=== PATIENT | male | born 1970 | race African-American/Black ===

== ENCOUNTER 2017-01-28 19:03 | Inpatient (IN) | payer SELFPAY ==
--- NOTE | 2017-01-28 19:15 | ER Document Report ---
ED Medical Screen (RME) - General Stated Complaint: CHEST PAIN Time Seen by Provider: 01/28/17 19:14 Notes: He states that he has had some intermittent chest tightness today. Has had dyspnea with exertion. Just walking around [employer] he was short of breath. Was sitting at the table and started sweating. Had little shortness of breath and a mild cough yesterday. Patient is a renal failure patient status post dialysis now with kidney transplant. On CellCept and Prograf. - Related Data Allergies/Adverse Reactions: No Known Allergies Allergy (Verified 01/28/17 19:16) Physical Exam - Vital signs Vitals: Temp Pulse Resp BP Pulse Ox 98.1 F 107 H 20 149/111 H 92 01/28/17 19:14 01/28/17 19:14 01/28/17 19:14 01/28/17 19:14 01/28/17 19:14 Course - Re-evaluation Re-evalutation: 01/28/17 19:31 Orders have been placed. Waiting for bed at this time. I have greeted and performed a rapid initial assessment of this patient. A comprehensive ED assessment and evaluation of the patient, analysis of test results and completion of the medical decision making process will be conducted by additional ED providers. - Vital Signs Vital signs: Temp Pulse Resp BP Pulse Ox 98.1 F 107 H 20 149/111 H 92 01/28/17 19:14 01/28/17 19:14 01/28/17 19:14 01/28/17 19:14 01/28/17 19:14
--- NOTE | 2017-01-28 20:14 | RADIOLOGY REPORT (SQ) ---
EXAM DESCRIPTION: CHEST PA/LAT COMPLETED DATE/TIME: 01/28/2017 7:40 pm REASON FOR STUDY: chest pain COMPARISON: None. EXAM PARAMETERS: NUMBER OF VIEWS: two views TECHNIQUE: Digital Frontal and Lateral radiographic views of the chest acquired. RADIATION DOSE: NA LIMITATIONS: none FINDINGS: LUNGS AND PLEURA: No opacities, masses or pneumothorax. No pleural effusion. MEDIASTINUM AND HILAR STRUCTURES: No masses or contour abnormalities. HEART AND VASCULAR STRUCTURES: Heart normal size. No evidence for failure. BONES: No acute findings. HARDWARE: None in the chest. OTHER: No other significant finding. IMPRESSION: NO SIGNIFICANT RADIOGRAPHIC FINDING IN THE CHEST. TECHNICAL DOCUMENTATION: JOB ID: [id number] [employer]- All Rights Reserved
[2017-01-28 20:15] LABS: ABSOLUTE EOSINOPHILS # (AUTO) 0.1 10^3/uL (0.0-0.6); ABSOLUTE LYMPHOCYTES (AUTO) 1.8 10^3/uL (0.5-4.7); ABSOLUTE MONOCYTES (AUTO) 0.6 10^3/uL (0.1-1.4); ABSOLUTE NEUT (AUTO) 5.2 10^3/uL (1.7-8.2); BASOPHILS % (AUTO) 0.4 % (0-2); EOSINOPHILS % (AUTO) 1.3 % (0-6); HEMATOCRIT 41.9 % (37.9-51.0); HEMOGLOBIN 14.2 g/dL (13.5-17.0); HGB HCT DIFFERENCE 0.7; MEAN CORPUSCULAR HEMOGLOBIN 30.2 pg (27.0-33.4); MEAN CORPUSCULAR VOLUME 89 fl (80-97); MONOCYTES % (AUTO) 8.3 % (3-13); RED BLOOD COUNT 4.72 10^6/uL (4.35-5.55); RED CELL DISTRIBUTION WIDTH 14.7 % (11.5-14.0); WHITE BLOOD COUNT 7.8 10^3/uL (4.0-10.5)
--- NOTE | 2017-01-28 20:24 | ER Document Report ---
ED General - General Chief Complaint: Chest Pain Stated Complaint: CHEST PAIN Time Seen by Provider: 01/28/17 19:14 TRAVEL OUTSIDE OF THE [place] IN LAST 30 DAYS: No - HPI Notes: Patient is a 46-year-old male with a history of hypertension, kidney disease status post kidney transplant, anxiety who presents the ED complaining of chest tightness with dyspnea on exertion while ambulating around [facility] today. Pt also had an episode of sweating while sitting at a table to catch his breath. Patient states that chest tightness is not new for him and is usually associated with anxiety per pt, but the dyspnea on exertion is what brought him in today. Patient states that he is still eating and drinking without any difficulties. He still urinating normally and having normal bowel movements. Patient states that he feels a chest discomfort that does not radiate, but currently is asymptomatic. Patient states that his symptoms exacerbate when he ambulates, and is not present at rest. Patient also has an associated left calf tightness, but denies any distant travel, smoking, hormone use, surgery, trauma, or previous history of DVT/PE. Patient denies any significant cardiac medical history or history of diabetes. He denies any IV drug use. Patient states that he is seen in [place] s/p renal transplant. Denies any headache, fever, neck pain, URI, sore throat, palpitations, syncope, cough, wheeze, abdominal pain, nausea/vomiting/diarrhea, urinary retention, dysuria, hematuria , back pain, loss of control of bowel or bladder, numbness/tingling, saddle anesthesia, muscle paralysis/weakness, or rash. Pt takes CellCept and Prograf s/p kidney transplant. - Related Data Allergies/Adverse Reactions: No Known Allergies Allergy (Verified 01/28/17 19:16) Past Medical History - Social History Smoking Status: Never Smoker Frequency of alcohol use: Occasional Drug Abuse: None Family History: Reviewed & Not Pertinent Patient has suicidal ideation: No Patient has homicidal ideation: No Renal/ Medical History: Denies: Hx Peritoneal Dialysis Review of Systems - Review of Systems Notes: REVIEW OF SYSTEMS: CONSTITUTIONAL : Denies fever, chills, or sweats. Denies recent illness. EENT: Denies eye, ear, throat, or mouth pain or symptoms. Denies nasal or sinus congestion or discharge. Denies throat, tongue, or mouth swelling or difficulty swallowing. CARDIOVASCULAR: see hpi. Denies ankle edema. RESPIRATORY: Denies cough, cold, or chest congestion. see hpi. GASTROINTESTINAL: Denies abdominal pain or distention. Denies nausea, vomiting , or diarrhea. Denies blood in vomitus, stools, or per rectum. Denies black, tarry stools. Denies constipation. GENITOURINARY: Denies difficulty urinating, painful urination, burning, frequency, blood in urine, or discharge. MUSCULOSKELETAL: see hpi. SKIN: Denies rash, lesions or sores. NEUROLOGICAL: Denies confusion or altered mental status. Denies passing out or loss of consciousness. Denies dizziness or lightheadedness. Denies headache. Denies weakness or paralysis or loss of use of either side. Denies problems with gait or speech. Denies sensory loss, numbness, or tingling. Denies seizures. PSYCHIATRIC: see hpi. ALL OTHER SYSTEMS REVIEWED AND NEGATIVE. Dictation was performed using [employer] voice recognition software Physical Exam - Vital signs Vitals: Temp Pulse Resp BP Pulse Ox 98.1 F 107 H 20 149/111 H 92 01/28/17 19:14 01/28/17 19:14 01/28/17 19:14 01/28/17 19:14 01/28/17 19:14 Notes: PHYSICAL EXAMINATION: GENERAL: Well-appearing, well-nourished and in no acute distress. A&Ox4. Appears comfortable. HEAD: Atraumatic, normocephalic. EYES: Pupils equal round and reactive to light, extraocular movements intact, sclera anicteric, conjunctiva are normal. ENT: Nares patent and without discharge. oropharynx clear without exudates. No tonsilar hypertrophy or erythema. Moist mucous membranes. NECK: Normal range of motion, supple without lymphadenopathy. No rigidity/ meningismus. Chest: non-tender. equal rise/fall. LUNGS: Breath sounds clear to auscultation bilaterally and equal. No wheezes rales or rhonchi. HEART: Regular rate and rhythm without murmurs, rubs, gallops. ABDOMEN: Soft, nontender, nondistended abdomen. No guarding, no rebound. No masses appreciated. Normal bowel sounds present. No CVA tenderness bilaterally. Musculoskeletal: LE's b/l: FROM to passive/active. Strength 5+/5. + mild calf tenderness ("sore") with palp to the left. No erythema, swelling, or palpable cord. Extremities: No cyanosis, clubbing, or edema b/l. Peripheral pulses 2+. Capillary refill less than 3 seconds. NEUROLOGICAL: Normal speech, normal gait. Normal sensory, motor exams PSYCH: Normal mood, normal affect. SKIN: Warm, Dry, normal turgor, no rashes or lesions noted. Course - Re-evaluation Re-evalutation: 01/28/17 21:24 + trop 0.204 ASA given Lovenox ordered CTA chest ordered O2 at 2L due to O2 sat of 92% on RA 01/28/17 23:29 2nd trop pending 2nd EKG obtained, improvement in T waves in anterior leads CTA chest showed + PE. see results Pt currently asymptomatic at rest Reviewed with Dr. Castano: admit No answer when calling hospitalist, I will try again in a few minutes. 01/28/17 23:[address] Garrett. He would like the result of the 2nd trop prior to acceptance. If it is significantly higher than he would recommend transfer. 01/29/17 00:02 2nd Trop decreased to 0.177. Spoke with Dr. Garrett who accepted pt to [facility]. - Vital Signs Vital signs: Temp Pulse Resp BP Pulse Ox 98.1 F 107 H 10 L 162/112 H 96 01/28/17 19:14 01/28/17 19:14 01/28/17 21:01 01/28/17 21:01 01/28/17 21:01 - Laboratory Result Diagrams: 01/28/17 20:02 01/28/17 20:02 Laboratory results interpreted by me: 01/28/17 01/28/17 01/28/17 20:02 20:02 20:02 RDW 14.7 H APTT D-Dimer Sodium 145.1 H Creatinine 1.51 H Est GFR (Non-Af Amer) 50 L Glucose 112 H Creatine Kinase 328 H NT-Pro-B Natriuret Pep 559 H Urine Protein 01/28/17 01/28/17 01/28/17 20:02 21:45 22:40 RDW APTT 38.3 H D-Dimer > 20.00 H* Sodium Creatinine Est GFR (Non-Af Amer) Glucose Creatine Kinase NT-Pro-B Natriuret Pep Urine Protein >=500 H Discharge - Discharge Clinical Impression: Pulmonary emboli Qualifiers: Pulmonary embolism type: other Chronicity: acute Acute cor pulmonale presence: with acute cor pulmonale Qualified Code(s): I26.09 - Other pulmonary embolism with acute cor pulmonale Condition: Stable Disposition: ADMITTED INPATIENT Admitting Provider: Hospitalist - Dr. Garrett Unit Admitted: [facility]
[2017-01-28 20:32] LABS: ALANINE AMINOTRANSFERASE 32 U/L (21-72); ALBUMIN 4.2 g/dL (3.5-5.0); ALKALINE PHOSPHATASE 54 U/L (38-126); ANION GAP 16 (5-19); ASPARTATE AMINO TRANSFERASE 24 U/L (17-59); BILIRUBIN,DIRECT 0.3 mg/dL (0.0-0.4); BILIRUBIN,TOTAL 0.9 mg/dL (0.2-1.3); BLOOD UREA NITROGEN 16 mg/dL (7-20); CALCIUM 9.6 mg/dL (8.4-10.2); CARBON DIOXIDE 23 mmol/L (22-30); CHLORIDE 106 mmol/L (98-107); CREATINE KINASE 328 U/L (55-170); CREATININE RESULT 1.51 mg/dL (0.52-1.25); GLUCOSE 112 mg/dL (75-110); POTASSIUM 3.8 mmol/L (3.6-5.0); SODIUM 145.1 mmol/L (137-145); TOTAL PROTEIN 7.9 g/dL (6.3-8.2)
[2017-01-28 20:51] LABS: CREATINE KINASE MB 1.32 ng/mL (<4.55); TROPONIN I 0.204 ng/mL
[2017-01-28] MEDS ORDERED: ASPIRIN 81 MG TABLET, CHEWABLE PO ONE (21:12)
[2017-01-28 21:42] LABS: PROTHROMBIN TIME 14.2 SEC (11.4-15.4)
[2017-01-28 21:43] LABS: PARTIAL THROMBOPLASTIN TIME 38.3 SEC (23.5-35.8)
[2017-01-28] MEDS ORDERED: ENOXAPARIN SODIUM INJ 150 MG/1 ML DISP.SYRIN SUBCUT SCH (22:00)
[2017-01-28 22:13] LABS: APPEARANCE,URINE CLEAR; BILIRUBIN,URINE NEGATIVE (NEGATIVE); GLUCOSE, URINE NEGATIVE (NEGATIVE); KETONES,URINE NEGATIVE (NEGATIVE); LEUKOCYTE ESTERASE,URINE NEGATIVE (NEGATIVE); NITRITE,URINE NEGATIVE (NEGATIVE); PROTEIN,URINE >=500 mg/dL (NEGATIVE); URINE SPECIFIC GRAVITY 1.025; UROBILINOGEN,URINE NEGATIVE mg/dL (<2.0)
--- NOTE | 2017-01-28 23:18 | RADIOLOGY REPORT (SQ) ---
EXAM DESCRIPTION: CTA CHEST COMPLETED DATE/TIME: 01/28/2017 10:53 pm REASON FOR STUDY: dyspnea on exertion COMPARISON: None. TECHNIQUE: CT scan of the chest performed using helical scanning technique with dynamic intravenous contrast injection. Images reviewed with lung, soft tissue and bone windows. Reconstructed coronal and sagittal MPR images reviewed. Additional 3 dimensional post-processing performed to develop Maximal Intensity Projection images (CA P). All images stored on PACS. All CT scanners at this facility use dose modulation, iterative reconstruction, and/or weight based d osing when appropriate to reduce radiation dose to as low as reasonably achievable (ALARA). [facility]: Dose Right [facility]: CareDose [facility]: Dose Right [facility]: Teradose 4D [facility]: Questra CONTRAST TYPE AND DOSE: contrast/concentration: Isovue 370.00 mg/ml; Total Contrast Delivered: 100.0 ml; Total Saline Delivered: 60.0 ml Contrast bolus optimized for the pulmonary arteries. Not diagnostic for the aorta. RENAL FUNCTION: None required. The patient is less than 50 years old. RADIATION DOSE: CT Rad equipment meets quality standard of care and radiation dose reduction techniq ues were employed. CTDIvol: 34.5 mGy. DLP: 1191 mGy-cm. . LIMITATIONS: None. FINDINGS: LUNGS AND PLEURA: Small patchiness of the lingula. AORTA AND GREAT VESSELS: No aneurysm. Contrast bolus not optimized for the aorta. HEART: No pericardial effusion. No significant coronary artery calcifications. PULMONARY ARTERIES: Near occlusive pulmonary emboli predominately of the interlobar artery of the rig ht lower lobe and secondary branches of the left upper lobe. 4.8 cm in diameter main pulmonary outfl ow track tract. HILAR AND MEDIASTINAL STRUCTURES: No identified masses or abnormal nodes. HARDWARE: None in the chest. UPPER ABDOMEN: No significant findings. Limited exam. THYROID AND OTHER SOFT TISSUES: No masses. No adenopathy. BONES: No acute or significant finding. 3D MIPS: Confirm above findings. OTHER: No other significant finding. IMPRESSION: 1. Bilateral pulmonary emboli includes a near occlusive emboli of the interlobar artery of the right lower lobe. 2. Pulmonary arterial hypertension. 3. With small to moderate lingular pneumonia/atelectasis/fluid. COMMENT: This report was called to Dr. Christina At23:09 on 01/28/2017. Quality ID # [id number]: Final reports with documentation of one or more dose reduction techniques (e.g., Au tomated exposure control, adjustment of the mA and/or kV according to patient size, use of iterative reconstruction technique) TECHNICAL DOCUMENTATION: JOB ID: [id number] [employer]- All Rights Reserved
[2017-01-29] MEDS ORDERED: MAGNESIUM HYDROXIDE SUSP 30 ML UDCUP PO PRN (00:33)
[2017-01-29] MEDS ORDERED: NORMAL SALINE 1000 ML 1,000 ML IV SCH (00:45)
--- NOTE | 2017-01-29 02:49 | PDOC H&P ---
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 He presents after 4 hours of chest tightness occurring while shopping. This is associated with diaphoresis and shortness of breath. No nausea or vomiting he denies previous episode he denies recent change in medications though over the last few days he has noted a painful knot behind his left knee. In the emergency room is found to be hypertensive and tachycardic, CTA of the chest reveals large bilateral pulmonary emboli he started on Lovenox and referred to the hospitalist for admission. Past Medical History Cardiac Medical History: Reports: Hypertension Pulmonary Medical History: Reports: Sleep Apnea Past Surgical History Past Surgical History: Reports: Renal Transplant Social History Information Source: Patient Lives with: Family Smoking Status: Never Smoker Frequency of Alcohol Use: Rare Drugs: None - Advance Directive Resuscitation Status: Full Code Family History Family History: Other - End-stage renal failure secondary to toxic metabolite Parental Family History Reviewed: Yes Children Family History Reviewed: Yes Sibling(s) Family History Reviewed.: Yes Medication/Allergy Allergies/Adverse Reactions: No Known Allergies Allergy (Verified 01/28/17 19:16) Review of Systems Constitutional: ABSENT: chills, fever(s), headache(s), weight gain, weight loss Eyes: ABSENT: visual disturbances Ears: ABSENT: hearing changes Cardiovascular: ABSENT: chest pain, dyspnea on exertion, edema, orthropnea, palpitations Respiratory: ABSENT: cough, hemoptysis Gastrointestinal: ABSENT: abdominal pain, constipation, diarrhea, hematemesis, hematochezia, nausea, vomiting Genitourinary: ABSENT: dysuria, hematuria Musculoskeletal: ABSENT: joint swelling Integumentary: ABSENT: rash, wounds Neurological: ABSENT: abnormal gait, abnormal speech, confusion, dizziness, focal weakness, syncope Psychiatric: ABSENT: anxiety, depression, homidical ideation, suicidal ideation Endocrine: ABSENT: cold intolerance, heat intolerance, polydipsia, polyuria Hematologic/Lymphatic: ABSENT: easy bleeding, easy bruising Physical Exam Vital Signs: Temp Pulse Resp BP Pulse Ox 98.1 F 107 H 13 156/120 H 98 01/28/17 19:14 01/28/17 19:14 01/29/17 02:01 01/29/17 02:01 01/29/17 02:01 General appearance: PRESENT: cooperative, mild distress. ABSENT: disheveled Head exam: PRESENT: atraumatic, normocephalic Eye exam: PRESENT: conjunctiva pink, EOMI, PERRLA. ABSENT: scleral icterus Ear exam: PRESENT: normal external ear exam Mouth exam: PRESENT: moist, tongue midline Neck exam: ABSENT: carotid bruit, JVD, lymphadenopathy, thyromegaly Respiratory exam: PRESENT: clear to auscultation walter, tachypnea. ABSENT: rales , rhonchi, wheezes Cardiovascular exam: PRESENT: gallop, +S1, +S2, systolic murmur Pulses: PRESENT: normal dorsalis pedis pul Vascular exam: PRESENT: normal capillary refill GI/Abdominal exam: PRESENT: normal bowel sounds, soft. ABSENT: distended, guarding, mass, organolmegaly, rebound, tenderness Rectal exam: PRESENT: deferred Extremities exam: PRESENT: calf tenderness - Left side, full ROM. ABSENT: clubbing, pedal edema Neurological exam: PRESENT: alert, awake, oriented to person, oriented to place , oriented to time, oriented to situation, CN II-XII grossly intact. ABSENT: motor sensory deficit Psychiatric exam: PRESENT: appropriate affect, normal mood. ABSENT: homicidal ideation, suicidal ideation Skin exam: PRESENT: dry, intact, warm. ABSENT: cyanosis, rash Results Impressions: Chest X-Ray 01/28/17 19:29 IMPRESSION: NO SIGNIFICANT RADIOGRAPHIC FINDING IN THE CHEST. Chest/Abdomen CTA 01/28/17 21:23 IMPRESSION: 1. Bilateral pulmonary emboli includes a near occlusive emboli of the interlobar artery of the right lower lobe. 2. Pulmonary arterial hypertension. 3. With small to moderate lingular pneumonia/atelectasis/fluid. Assessment & Plan - Diagnosis (1) Pulmonary emboli Qualifiers: Pulmonary embolism type: other Chronicity: acute Acute cor pulmonale presence: with acute cor pulmonale Qualified Code(s): I26.09 - Other pulmonary embolism with acute cor pulmonale Is this a current diagnosis for this admission?: Yes Plan: Secondary to left leg DVT by history hemodynamically stable 12 hours of bedrest , Lovenox 1 mg/kg subcu every 12 hours ordered. (2) Left leg DVT Is this a current diagnosis for this admission?: Yes Plan: Venous Doppler pending, Lovenox 1 mg/kg subcu every 12 hours (3) Renal transplant recipient Is this a current diagnosis for this admission?: Yes Plan: Avoid nephrotoxic meds and doses unclear baseline creatinine currently 1.5 follow-up chemistry (4) Immunosuppression Is this a current diagnosis for this admission?: Yes Plan: Continue CellCept (5) Obstructive sleep apnea Is this a current diagnosis for this admission?: Yes Plan: Continue CPAP - Time Time Spent: 30 to 50 Minutes - Inpatient Certification Medical Necessity: Need Close Monitoring Due to Risk of Patient Decompensation
[2017-01-29] MEDS ORDERED: INFLUENZA ADLT QUAD (36MOS+) 2017-18 VAC 0.5 ML SYR IM PRN (04:23)
[2017-01-29 05:55] LABS: ABSOLUTE EOSINOPHILS # (AUTO) 0.1 10^3/uL (0.0-0.6); ABSOLUTE LYMPHOCYTES (AUTO) 2.1 10^3/uL (0.5-4.7); ABSOLUTE MONOCYTES (AUTO) 0.8 10^3/uL (0.1-1.4); ABSOLUTE NEUT (AUTO) 4.5 10^3/uL (1.7-8.2); BASOPHILS % (AUTO) 0.7 % (0-2); EOSINOPHILS % (AUTO) 1.6 % (0-6); HEMATOCRIT 39.8 % (37.9-51.0); HEMOGLOBIN 13.6 g/dL (13.5-17.0); LYMPHOCYTES % (AUTO) 27.5 % (13-45); MEAN CORPUSCULAR HEMOGLOBIN 30.3 pg (27.0-33.4); MEAN CORPUSCULAR HGB CONC 34.2 g/dL (32.0-36.0); MEAN CORPUSCULAR VOLUME 89 fl (80-97); MONOCYTES % (AUTO) 10.5 % (3-13); RED BLOOD COUNT 4.49 10^6/uL (4.35-5.55); RED CELL DISTRIBUTION WIDTH 14.2 % (11.5-14.0); SEGMENTED NEUTROPHILS % (AUTO) 59.7 % (42-78); WHITE BLOOD COUNT 7.5 10^3/uL (4.0-10.5)
[2017-01-29 06:13] LABS: ANION GAP 14 (5-19); BLOOD UREA NITROGEN 17 mg/dL (7-20); CALCIUM 9.5 mg/dL (8.4-10.2); CARBON DIOXIDE 27 mmol/L (22-30); CHLORIDE 104 mmol/L (98-107); CREATININE RESULT 1.51 mg/dL (0.52-1.25); GLUCOSE 108 mg/dL (75-110); POTASSIUM 3.9 mmol/L (3.6-5.0); SODIUM 145.1 mmol/L (137-145)
[2017-01-29] MEDS: IPRATROPIUM/ALBUTEROL 0.5-2.5 MG/3 ML AMPUL NEB SCH ×2 (08:44→20:26)
[2017-01-29] MEDS: APIXABAN 5 MG TABLET PO SCH ×2 (09:29→17:10)
[2017-01-29] MEDS: DOCUSATE SODIUM 100 MG CAPSULE PO SCH ×2 (09:30→17:11)
[2017-01-29] MEDS ORDERED: ENOXAPARIN SODIUM INJ 150 MG/1 ML DISP.SYRIN SUBCUT SCH (10:00)
--- NOTE | 2017-01-29 10:25 | RADIOLOGY REPORT (SQ) ---
EXAM DESCRIPTION: VENOUS UNILATERAL LOWER COMPLETED DATE/TIME: 01/29/2017 10:17 am REASON FOR STUDY: Left DVT COMPARISON: None. TECHNIQUE: Dynamic and static carter scale and color images acquired of the left leg venous system. Se lected spectral images acquired with additional compression and augmentation maneuvers. The contralat eral common femoral vein and saphenofemoral junction were also imaged. Images stored on PACS. LIMITATIONS: None. FINDINGS: COMMON FEMORAL: Normal phasicity, compression and augmentation. No visualized echogenic ma terial on carter scale. No defects on color images. FEMORAL: Occlusive intraluminal thrombus is identified throughout the femoral vein POPLITEAL: Normal compression, augmentation. No visualized echogenic material on carter scale. No defec ts on color images. CALF VESSELS: Normal compression, augmentation. No visualized echogenic material on carter scale. No de fects on color images. GSV and SSV: Normal compression, augmentation. No visualized echogenic material on carter scale. No def ects on color images. ANY DEEP VENOUS INSUFFICIENCY: Not evaluated. ANY EVIDENCE OF POPLITEAL CYST: No. OTHER: No other significant finding. CONTRALATERAL COMMON FEMORAL VEIN AND SAPHENOFEMORAL JUNCTION: Normal phasicity, compression and augmentation. No visualized echogenic material on carter scale. No de fects on color images. IMPRESSION: Occlusive intraluminal thrombus is identified throughout the femoral vein. TECHNICAL DOCUMENTATION: JOB ID: [id number] [employer]- All Rights Reserved
--- NOTE | 2017-01-29 12:02 | PROGRESS NOTE E ---
Progress Note NAME: RENEA HERRON : 1970 AGE: 46Y DATE: 01/29/2017 ROOM: 332 SUBJECTIVE: The patient is a 46-year-old male who had a kidney transplant. 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 He presented after 4 hours of chest pain/tightness and diaphoresis. The patient had no nausea or vomiting. He had a CTA which showed he had bilateral PE as well as DVT and was started on Lovenox. OBJECTIVE: GENERAL: Patient lying in bed, comfortable, not in distress. VITAL SIGNS: Temperature 97.6, heart rate 81, respiratory rate 18, blood pressure is 149/98, saturation 97%. HEENT: Head normocephalic, atraumatic. Pupils round, reactive to light and accommodation bilaterally. Extraocular movements intact. Ears: Tympanic membranes intact bilaterally. No discharge from the ears. No discharge from the nose. NECK: Supple. No increased JVD. No thyromegaly. No lymphadenopathy. CARDIOVASCULAR: Normal S1, S2. Regular rate and rhythm. No murmur, no gallops. RESPIRATORY: Lungs clear. ABDOMEN: Soft. LABORATORY: White blood count is 7.5, hemoglobin 13.6, hematocrit 39. Sodium 145, potassium 3.9, creatinine 1.5. ASSESSMENT: 1. BILATERAL PE, ACUTE. 2. ACUTE DVT. 3. STATUS POST -DONOR KIDNEY TRANSPLANT IN 2007. 4. CHRONIC IMMUNOSUPPRESSION. 5. HYPERTENSION. PLAN: The patient was started on Lovenox 1 mg/kg twice a day. Will add Eliquis 10 mg twice a day for 1 week and then 5 mg twice a day. Will discontinue Lovenox tomorrow. Will get echocardiogram, profile, urine protein-creatinine ratio. Continue his immunosuppression. He is on CellCept 500 mg twice a day and tacrolimus XL or Prograf XL 5 mg daily. MEDICAL NECESSITY: Needs lovenox for treatment of DVT. DICTATING PHYSICIAN: RAYNE LUJAN M.D. [id number] PHY#: [id number] ID: [id number] JOB#: [id number] ACCT: [id number] cc: > MTDD
--- NOTE | 2017-01-29 14:41 | EKG REPORT ---
SEVERITY:- BORDERLINE ECG - SINUS RHYTHM PROBABLE LEFT ATRIAL ABNORMALITY : Confirmed by: Leslie Schrader MD 29-Jan-2017 14:40:03
--- NOTE | 2017-01-29 14:41 | EKG REPORT ---
SEVERITY:- BORDERLINE ECG - SINUS TACHYCARDIA BORDERLINE T ABNORMALITIES, DIFFUSE LEADS : Confirmed by: Leslie Schrader MD 29-Jan-2017 14:40:07
--- NOTE | 2017-01-29 16:23 | XCELERA REPORT ---
[address] [address] Transthoracic Echocardiogram Report Name: RENEA HERRON Age: 46 yrs Gender: Male : 1970 Patient Status: Inpatient Patient Location: [address] [place] [address] Study Date: 01/29/2017 01:32 PM Height: 77 in Weight: 288 lb BSA: 2.6 m2 Procedure: A complete two-dimensional transthoracic echocardiogram was performed (2D, M-mode, spectral and color flow Doppler). The study was technically difficult with many images being suboptimal in quality. Reason For Study: SOB. DVT Ordering Physician: RAYNE LUJAN Performed By: Radha Laird Interpretation Summary The study was technically difficult with many images being suboptimal in quality. The left ventricular ejection fraction is normal. There is mild to moderate concentric left ventricular hypertrophy. The left ventricle is grossly normal size. Doppler measurements suggest pseudonormalized left ventricular relaxation, which is associated with grade II/IV or mild to moderate diastolic dysfunction Wall motion cannot be accurately commented on, but no definite regional wall motion abnormalities noted. The left atrium is mildly dilated. The right atrium is mildly dilated. There is a trace amount of mitral regurgitation There is no mitral valve stenosis. There is a mild amount of aortic regurgitation There is no aortic valve stenosis There is a trace or physiologic amount of tricuspid regurgitation Tricuspid regurgitation jet envelope not well defined to measure RV systolic pressure accurately. The aortic root is not well visualized but is probably normal size. The inferior vena cava was not well visualized There is no pericardial effusion. MMode/2D Measurements & Calculations RVDd: 3.7 cm LVIDd: 4.0 cmFS: 42.0 % Ao root diam: 3.9 cm IVSd: 1.3 cm LVIDs: 2.3 cmEDV(Teich): 70.8 ml LVPWd: 1.1 cmESV(Teich): 18.7 ml Ao root area: 11.7 cm2 EF(Teich): 73.6 % LA dimension: 4.0 cm LVOT diam: 2.3 cm LVOT area: 4.1 cm2 Doppler Measurements & Calculations MV E max evan: MV P1/2t max evan: Ao V2 max: LV V1 max P.2 cm/sec 61.2 cm/sec 137.8 cm/sec 6.9 mmHg MV A max evan: MV P1/2t: 69.5 msec Ao max PG: LV V1 max: 95.8 cm/sec MVA(P1/2t): 3.2 cm2 7.6 mmHg 131.6 cm/sec MV E/A: 0.63 MV dec slope: JOESPH(V,D): 3.9 cm2 258.0 cm/sec2 PA V2 max: TR max evan: 102.7 cm/sec 210.4 cm/sec PA max PG: TR max P.7 mmHg 4.2 mmHg Left Ventricle The left ventricle is grossly normal size. There is mild to moderate concentric left ventricular hypertrophy. The left ventricular ejection fraction is normal. Doppler measurements suggest pseudonormalized left ventricular relaxation, which is associated with grade II/IV or mild to moderate diastolic dysfunction. Wall motion cannot be accurately commented on, but no definite regional wall motion abnormalities noted. Right Ventricle Borderline right ventricular enlargement. Right ventricular function cannot be assessed due to poor image quality. Atria The right atrium is mildly dilated. The left atrium is mildly dilated. Interarterial septum not well visualized and not well dopplered. Cannot comment on ASD/PFO presence. Mitral Valve There is mild mitral leaflet calcification. There is no mitral valve stenosis. There is a trace amount of mitral regurgitation. Aortic Valve The aortic valve is sclerotic, but shows no functional abnormality. There is no aortic valve stenosis. There is a mild amount of aortic regurgitation. Tricuspid Valve The tricuspid valve is not well visualized secondary to technical limitations. There is no tricuspid stenosis. There is a trace or physiologic amount of tricuspid regurgitation. Tricuspid regurgitation jet envelope not well defined to measure RV systolic pressure accurately. Pulmonic Valve The pulmonic valve is not well visualized. Great Vessels The aortic root is not well visualized but is probably normal size. The inferior vena cava was not well visualized. Effusions There is no pericardial effusion. : RAYNE LUJAN > Ramiro Harvey
[2017-01-30 05:22] LABS: ABSOLUTE EOSINOPHILS # (AUTO) 0.2 10^3/uL (0.0-0.6); ABSOLUTE LYMPHOCYTES (AUTO) 1.8 10^3/uL (0.5-4.7); ABSOLUTE MONOCYTES (AUTO) 0.6 10^3/uL (0.1-1.4); ABSOLUTE NEUT (AUTO) 3.6 10^3/uL (1.7-8.2); BASOPHILS % (AUTO) 0.5 % (0-2); EOSINOPHILS % (AUTO) 2.8 % (0-6); HEMOGLOBIN 13.6 g/dL (13.5-17.0); HGB HCT DIFFERENCE 0.8; MEAN CORPUSCULAR HEMOGLOBIN 30.2 pg (27.0-33.4); MEAN CORPUSCULAR VOLUME 89 fl (80-97); MONOCYTES % (AUTO) 10.2 % (3-13); RED CELL DISTRIBUTION WIDTH 14.1 % (11.5-14.0); SEGMENTED NEUTROPHILS % (AUTO) 57.5 % (42-78); WHITE BLOOD COUNT 6.3 10^3/uL (4.0-10.5)
[2017-01-30 05:47] LABS: ANION GAP 15 (5-19); BLOOD UREA NITROGEN 17 mg/dL (7-20); CALCIUM 9.7 mg/dL (8.4-10.2); CARBON DIOXIDE 25 mmol/L (22-30); CHLORIDE 104 mmol/L (98-107); CREATININE RESULT 1.49 mg/dL (0.52-1.25); GLUCOSE 103 mg/dL (75-110); SODIUM 144.1 mmol/L (137-145)
[2017-01-30 08:30] VITALS: BP 160/100
[2017-01-30] MEDS: IPRATROPIUM/ALBUTEROL 0.5-2.5 MG/3 ML AMPUL NEB SCH (08:46)
[2017-01-30] MEDS: APIXABAN 5 MG TABLET PO SCH (08:55)
[2017-01-30] MEDS: DOCUSATE SODIUM 100 MG CAPSULE PO SCH (09:18)
--- NOTE | 2017-01-30 09:33 | DISCHARGE SUMMARY E ---
Discharge Summary NAME: RENEA HERRON : 1970 AGE: 46Y ADMITTED: 01/29/2017 DISCHARGED: 01/30/2017 ADMISSION DIAGNOSES: 1. Bilateral pulmonary embolism. 2. Deep venous thrombosis, left. 3. Renal transplant recipient on immunosuppression. 4. Chronic obstructive pulmonary disease. DISCHARGE DIAGNOSES: 1. Pulmonary embolism. 2. Left leg deep venous thrombosis. 3. Renal disease, status post renal transplant on immunosuppression. 4. Obstructive sleep apnea. 5. Morbid obesity. IMAGING: Doppler ultrasound showed left calf DVT. CT angiogram showed bilateral PE. Echocardiogram with normal ejection fraction, mild diastolic heart failure. HOSPITAL COURSE: The patient is a 46-year-old male, who has a past medical history of renal disease status post kidney transplant in 2007 in [place], [place]. His primary disease for was focal glomerular sclerosis. The patient also has obstructive sleep apnea and he is on chronic immunosuppression. He was visiting family here and was driving 2 days ago from [place] to the family and on the day of admission, he was brought with left leg pain and chest pain. He had workup for PE. He was found to have bilateral large PE, as well as left DVT. He was started on Lovenox and yesterday we put him on Lovenox 10 mg twice a day for one week and then 5 mg twice a day for 3-6 months. The patient needs to continue his immunosuppression, Cellcept 500 mg twice a day, Astagraf XL 5 mg daily. He is doing much better today. No chest pain. I told him to be on bed rest for at least 1 week and after that light activity. The patient will be discharged home today. PHYSICAL EXAMINATION: GENERAL: Lying in bed, comfortable, not in distress. VITAL SIGNS: Temperature 98.0, heart rate 85, blood pressure 151/118, respiratory rate 16, oxygen saturation 96%. HEENT: Head normocephalic, atraumatic. Pupils round, reactive to light and accommodation bilaterally. Extraocular movements intact. Ears: Tympanic membranes intact bilaterally. No discharge from the ears. No discharge from the nose. NECK: Supple. No increased JVD. No thyromegaly. No lymphadenopathy. CARDIOVASCULAR: Normal S1, S2. Regular rate and rhythm. No murmur, no gallops. RESPIRATORY: Lungs clear. ABDOMEN: Soft, nontender. MUSCULOSKELETAL: No edema. NEUROLOGIC: Awake, alert. SKIN: No rash. LABORATORY: White blood count 6.3, hemoglobin 15. Sodium 144, potassium 4.0. DISCHARGE INSTRUCTIONS: 1. Discharge patient home. 2. Continue his home medications that include tacrolimus 500 mg p.o. daily or Astagraf XL 500 mg daily, Cellcept 1 gram twice a day, labetalol 100 mg daily, Effexor 75 mg daily, amlodipine 10 mg daily, Eliquis 10 mg p.o. b.i.d. for 1 week and then 5 mg daily for 3-6 months. 3. Diet: Low salt diet. 4. Activities: As tolerated. DICTATING PHYSICIAN: RAYNE LUJAN M.D. [id number] PHY#: [id number] ID: [id number] JOB#: [id number] ACCT: [id number] cc:Gino HUDSON MD, M.D. JOHN E. STEWART, M.D. >
[2017-01-30 19:37] LABS: PROTEIN C ANTIGEN 75 % (60-150)
[2017-01-31 02:52] LABS: ANTITHROMBIN III ACTIVITY 90 % (75-135); PROTEIN C ACTIVITY 129 % (73-180)
[2017-01-31 08:37] LABS: DILUTE RUSSELL VIPOR VENOM 59.6 sec (0.0-47.0); DRVVT MIX 46.4 sec (0.0-47.0); PTT-LA 49.1 sec (0.0-51.9); THROMBIN TIME 20.3 sec (0.0-23.0)
[2017-01-31 13:25] LABS: LUPUS PANEL INTERPRETATION Comment: (.)
== END 2017-01-30 09:26 | disposition home or self-care (01) | DRG 176 ==
LOC: ER 19:03 → EH 01-29 00:20 → 3S 01-29 02:18
PROVIDERS: ADMIT Internal Medicine; ATTEND Internal Medicine
DX: I26.99 Other pulmonary embolism without acute cor pulmonale (principal); I82.412 Acute embolism and thrombosis of left femoral vein; Z94.0 Kidney transplant status; I10 Essential (primary) hypertension; G47.33 Obstructive sleep apnea (adult) (pediatric); E66.01 Morbid (severe) obesity due to excess calories; Z68.34 Body mass index [BMI] 34.0-34.9, adult
CPT/HCPCS: 36415; 71020; 71275; 80048; 80053; 81001; 82550; 82553; 83520; 83880; 84484; 85025; 85220; 85300; 85302; 85379; 85610; 85730; 86225; 86235; 90686; 93005; 93010; 93306; 93971; 94640; 96372; 99285; J3490; J7620